=== PATIENT | female | born 1990 | race African-American/Black ===

== ENCOUNTER 2018-06-06 18:43 | Emergency (ER) | payer OTHER ==
[~2018-06-06] VITALS: Ht 175.3 cm; Wt 58.5 kg
[2018-06-06] MEDS ORDERED: DIPHENHYDRAMINE HCL 25 MG CAP PO ONE (19:15)
[2018-06-06] MEDS ORDERED: PREDNISONE 10 MG TAB PO ONE (19:15)
[2018-06-06] MEDS ORDERED: DEXAMETHASONE SOD PHOS 10 MG/1 ML VIAL IV ONE (19:45)
== END 2018-06-06 20:01 | disposition home or self-care (01) ==
LOC: FSED 18:43
DX: R21 Rash and other nonspecific skin eruption (principal); T49.8X5A Adverse effect of other topical agents, initial encounter
CPT/HCPCS: 99282; J1100; J7512